=== PATIENT | male | born 1965 ===

== ENCOUNTER 2017-07-24 19:42 | Emergency (ER) | payer OTHER ==
[2017-07-24 19:59] VITALS: PULSE 70; RESP 18; TEMP 97.9; O2SAT 97
--- NOTE | 2017-07-24 20:18 | C.PDOC ---
History Of Present Illness 52yo male with no past medical history, presents to the ED with complaints of epigastric abdominal discomfort for the past 15 minutes. Patient states the pain felt like gas and after he belched, the pain resolved. He states he had a similar episode 2 weeks ago which resolved after belching as well. He currently denies any other complaints. He also denies any fever, chills, hematemesis, or bright red blood per rectum. Time Seen by Provider: 07/24/17 19:57 Chief Complaint (Nursing): Abdominal Pain History Per: Patient History/Exam Limitations: no limitations Onset/Duration Of Symptoms: Mins (15) Current Symptoms Are (Timing): Gone Location Of Pain/Discomfort: Epigastric Quality Of Discomfort: Gas Associated Symptoms: denies: Diarrhea Additional History Per: Patient Past Medical History Reviewed: Historical Data, Nursing Documentation, Vital Signs Vital Signs: Last Vital Signs Temp 97.9 F 07/24/17 19:53 Pulse 70 07/24/17 19:53 Resp 18 07/24/17 19:53 BP Pulse Ox 97 07/24/17 20:20 - Medical History PMH: No Chronic Diseases Surgical History: No Surg Hx Family History: States: No Known Family Hx - Social History Hx Alcohol Use: No Hx Substance Use: No - Immunization History Hx Tetanus Toxoid Vaccination: No Hx Influenza Vaccination: No Hx Pneumococcal Vaccination: No Review Of Systems Except As Marked, All Systems Reviewed And Found Negative. Gastrointestinal: Positive for: Abdominal Pain (now resolved). Negative for: Hematochezia, Hematemesis Physical Exam - Physical Exam Appears: Non-toxic, No Acute Distress Skin: Normal Color Head: Atraumatic, Normacephalic Eye(s): bilateral: Normal Inspection Neck: Normal ROM, Supple Chest: Symmetrical Cardiovascular: Rhythm Regular Respiratory: Normal Breath Sounds Gastrointestinal/Abdominal: Normal Exam, Soft, No Tenderness, No Mass, No Guarding, No Rebound Extremity: Normal ROM Neurological/Psych: Oriented x3 ED Course And Treatment O2 Sat by Pulse Oximetry: 97 (RA) Pulse Ox Interpretation: Normal Medical Decision Making Medical Decision Making: Impression: Dyspepsia Plan: -- Patient with well exam, denies any hisotry of peptic ulcer disease. Patient to be discharged home with prescription for protonix and instructed to follow up with PCP in 2-3 days. Disposition - Disposition Referrals: [facility] [Outside] Disposition: HOME/ ROUTINE Disposition Time: 20:17 Condition: FAIR Prescriptions: Pantoprazole Sodium [Protonix] 40 mg PO DAILY #14 ect Instructions: Stomach Ache and Stomach Upset Forms: [facility] (American) Print Language: [email or web address] - Clinical Impression Clinical Impression: Dyspepsia - Scribe Statement The provider has reviewed the documentation as recorded by the Scribe (Celestina Aquino) Provider Attestation: All medical record entries made by the Scribe were at my direction and personally dictated by me. I have reviewed the chart and agree that the record accurately reflects my personal performance of the history, physical exam, medical decision making, and the department course for this patient. I have also personally directed, reviewed, and agree with the discharge instructions and disposition.
== END 2017-07-24 20:23 | disposition home or self-care (01) ==
LOC: C.ER 19:42
DX: R10.13 Epigastric pain (principal)